=== PATIENT | female | born 1935 | race Caucasian/White ===

== ENCOUNTER → 2017-01-03 | Day surgery (SDC) | payer BC ==
[2016-12-21 09:53] VITALS: Ht 154.9 cm; Wt 58.2 kg
[~2017-01-03] VITALS: Ht 154.9 cm; Wt 58.2 kg
[~2017-01-03] MED LIST: ASCO10003 PO; ASPCH81X PO; ATOR10TA88 PO; BIMA0.01 OPB; BUPIVACAINE 0.25% 2.5MG/ML PF 10 ML VIAL INFIL ONE; CALC500C70 PO; CYCL0.052 OPB; DENO60SO INJ; LIDOCAINE HCL 1% MPF 5 ML VIAL ONE; LISI20TA3 PO; MAGNSUS5 PO; MILK150C PO; MOML PO; MULTTAB58 PO; OMEG12006 PO; OXAP600T PO; PANT40TA PO; TRAM37.52 PO
[2017-01-03 14:08] VITALS: TEMP 36.8
--- NOTE | 2017-01-03 14:44 | History & Physical Bridge - [place] ---
H&P Re-Evaluation Bridge Note: I have examined the patient, reviewed the History & Physical and in the interval since the performance of the History & Physical I have noted the following changes of clinical significance: No changes noted
--- NOTE | 2017-01-03 15:12 | Discharge Instructions ---
Discharge Instructions Date of Service Jan 03, 2017. Visit Reason for Visit: Low Back Pain Discharge Discharge Diagnosis / Problem: low back pain Discharge Goals Goal(s): Decrease discomfort, Improve function Activity Recommendations Activity Limitations: resume your previous activity Anesthesia . Post Anesthesia Instructions: If you have had General Anesthesia or IV Sedation: * Do not drive today. * Resume driving when surgeon permits. * Do not make important decisions or sign legal documents today. * Call surgeon for: 1. Temperature elevations greater than 101 degrees F. 2. Uncontrollable pain. 3. Excessive bleeding. 4. Persistent nausea and vomiting. 5. Medication intolerance (nausea, vomiting or rash). * For nausea and vomiting use only clear liquids such as: tea, soda, bouillon until nausea subsides, then gradually increase diet as tolerated. * If you have any concerns or questions, call your surgeon's office. If physician is unavailable and it is an emergency, call 911 or go to the nearest emergency room. . Diet Recommendations Recommended Home Diet: resume previous diet Procedures Procedures Performed: Bilateral L4-5 Medial Branch Blocks Pending Studies Studies pending at discharge: no Medical Emergencies . Who to Call and When: Medical Emergencies: If at any time you feel your situation is an emergency, please call 911 immediately. . Non-Emergent Contact Non-Emergency issues call your: Specialist . . "Provider Documentation" section prepared by Mj Burton.
[2017-01-03 15:22] VITALS: BP 175/99; PULSE 72; O2SAT 98
--- NOTE | 2017-01-03 16:05 | OPERATIVE REPORT ---
DATE OF OPERATION: 01/03/2017 PREOPERATIVE DIAGNOSES: Bilateral L4-5 facet arthropathy, chronic low back pain. POSTOPERATIVE DIAGNOSES: Same. PROCEDURE: Bilateral L4-5 medial branch blocks. INDICATIONS FOR PROCEDURE: The patient is a 81-year-old white female who presents today for medial branch blocks. It is felt that the cause of her pain and the etiology of her pain is facet arthropathy bilaterally at L4-5. Her history and examination are consistent with this. She presents today for diagnostic block to confirm that this is indeed the pain generator that is limiting her function. PHYSICAL EXAMINATION: GENERAL: Pleasant female seated comfortably. MUSCULOSKELETAL: She has tenderness to palpation bilaterally at the L4-5 areas. This is worse with extension, rotation and no pain with forward flexion. She has negative seated straight leg raises. She has intact motor and sensory examination of her lower extremities. CONSENT: Verbal and written consent was obtained from the patient. Risks and benefits were reviewed. Risks include but are not limited to abscess and allergic reaction. The patient wishes to proceed. DESCRIPTION OF PROCEDURE: The patient was taken back to the special procedures room of [facility]. She was maintained in a prone position. Backside was cleansed with Betadine x3 and a dry sterile dressing was applied. A fluoroscope was used to then identify the left L4 and L5 transverse process junctions. The overlying skin was then anesthetized with 1.25 mL of lidocaine 1% at each site with a 25-gauge 1.5-inch needle. A 25-gauge 3.5-inch spinal needle was then directed at each site contacting the bony target and then anesthetized with an additional 1 mL of bupivacaine 0.25%. The right side was then fluoroscopically identified, the right L4 transverse process junction and the right L5 transverse process junction. Overlying skin again anesthetized with 1.25 mL of lidocaine 1% with a 25-gauge 1.5-inch needle. A 25-gauge 3.5-inch spinal needle was then directed under fluoroscopic guidance contacting bony target at each site. She then underwent injection after negative aspiration of 1 mL of bupivacaine 0.25% at each site. DISPOSITION: 1. The patient is taken out into the discharge recovery area where she will be discharged home once discharge criteria have been met. 2. Follow up in the [facility] office in 2-4 weeks. I attest to the content of the Intraoperative Record and any orders documented therein. Any exceptio ns are noted below.
== END | disposition home or self-care (01) ==
LOC: X.SURG 13:54
PROVIDERS: ATTEND Physical Medicine & Rehabilitation
DX: M47.817 Spondylosis without myelopathy or radiculopathy, lumbosacral region (principal); G89.29 Other chronic pain; Z79.82 Long term (current) use of aspirin

== ENCOUNTER → 2017-01-21 | Outpatient (CLI) | payer BC ==
[~2017-01-21] MED LIST changes: +ATOR10TA82 PO; -ATOR10TA88 PO; -BUPIVACAINE 0.25% 2.5MG/ML PF 10 ML VIAL INFIL ONE; -LIDOCAINE HCL 1% MPF 5 ML VIAL ONE
== END | disposition home or self-care (01) ==
LOC: C.RDSM 10:50
PROVIDERS: ATTEND Physical Medicine & Rehabilitation Sports Medicine
DX: Z96.649 Presence of unspecified artificial hip joint (principal)

== ENCOUNTER → 2017-03-27 | Day surgery (SDC) | payer BC ==
[2017-03-04 14:04] VITALS: Ht 154.9 cm; Wt 58.2 kg
[~2017-03-27] VITALS: Ht 154.9 cm; Wt 58.2 kg
[~2017-03-27] MED LIST changes: -DENO60SO INJ; +IOPAMIDOL INJ 61% 15 ML VIAL ONE; +LIDOCAINE HCL 1% MPF 5 ML VIAL ONE; -MAGNSUS5 PO; +SODIUM CHLORIDE 0.9% INJ 10 ML VIAL ONE
[2017-03-27 14:45] VITALS: TEMP 36.9
--- NOTE | 2017-03-27 14:50 | Discharge Instructions ---
Discharge Instructions Date of Service Mar 27, 2017. Visit Reason for Visit: Lumbar Spinal Stenosis Discharge Discharge Diagnosis / Problem: low back pain Discharge Goals Goal(s): Decrease discomfort, Improve function Medications Stopped Medications Name(s): ASA and Zuri Membreno 03/23/17. Activity Recommendations Activity Limitations: resume your previous activity Anesthesia . Post Anesthesia Instructions: If you have had General Anesthesia or IV Sedation: * Do not drive today. * Resume driving when surgeon permits. * Do not make important decisions or sign legal documents today. * Call surgeon for: 1. Temperature elevations greater than 101 degrees F. 2. Uncontrollable pain. 3. Excessive bleeding. 4. Persistent nausea and vomiting. 5. Medication intolerance (nausea, vomiting or rash). * For nausea and vomiting use only clear liquids such as: tea, soda, bouillon until nausea subsides, then gradually increase diet as tolerated. * If you have any concerns or questions, call your surgeon's office. If physician is unavailable and it is an emergency, call 911 or go to the nearest emergency room. . Diet Recommendations Recommended Home Diet: resume previous diet Procedures Procedures Performed: LUMBAR EPIDURAL STEROID INJECTION, CHANGED TO CAUDAL APPROACH Pending Studies Studies pending at discharge: no Medical Emergencies . Who to Call and When: Medical Emergencies: If at any time you feel your situation is an emergency, please call 911 immediately. . Non-Emergent Contact Non-Emergency issues call your: Specialist . . "Provider Documentation" section prepared by Mj Burton. .
[2017-03-27 14:59] VITALS: BP 175/82; PULSE 83; O2SAT 97
--- NOTE | 2017-03-27 16:48 | OPERATIVE REPORT ---
DATE OF OPERATION: 03/27/2017 PREOPERATIVE DIAGNOSIS: Lumbar spinal stenosis with neurogenic claudication. POSTOPERATIVE DIAGNOSIS: Same. PROCEDURE: Caudal epidural steroid injection under fluoroscopic guidance. INDICATIONS: The patient is a 81-year-old white female that presents today for a lumbar epidural steroid injection. She had previously had done branch blocks before the facet joint was felt to be causing the intense pain in her low back, but these were not helpful. She does note that she gets a heaviness feeling in her legs and it is felt that she has more of a stenotic, as she presents today for an epidural injection to provide her with relief and improve her functional status. PHYSICAL EXAMINATION: GENERAL: Pleasant female seated comfortably. MUSCULOSKELETAL: Lumbar paraspinal muscles were palpated. They were nontender. She had no issues with forward flexion or extension. She had normal lower extremity strength. CONSENT: Verbal and written consent was obtained from the patient. Risks and benefits were reviewed. Risks include but are not limited to epidural abscess, epidural hematoma, allergic reaction, dural puncture. The patient wishes to proceed. DESCRIPTION OF PROCEDURE: The patient was taken back to the special procedures room of the [facility] where she was maintained in a prone position and the backside was cleansed with Betadine. Fluoroscope was used to identify the L4-L5 interlaminar space which was the largest opening out of all the interlaminar spaces in the lower lumbar area, but still rather constricted. Overlying skin was anesthetized with 4 mL of lidocaine 1% with a 25 gauge 1.5-inch needle and a 22 gauge 3.5-inch Tuohy needle was attempted to be advanced. It was unable to be advanced despite what appeared to be open areas in the interlaminar space. Decision was made to enter via a caudal approach and the view was changed to a lateral view and the overlying skin of the sacral hiatus was anesthetized with 2 mL of lidocaine 1% with a 25 gauge 1.5-inch needle was then directed easily into the sacral hiatus and through the sacral canal which after negative aspiration was injected with 40 mg of Depo-Medrol and 4 mL of preservative-free sodium chloride. Injection was well tolerated. DISPOSITION: 1. She is taken out into the discharge recovery area where she will be discharged to home once discharge criteria have been met. 2. Follow up in the [facility] office in 4 weeks' time. I attest to the content of the Intraoperative Record and any orders documented therein. Any exception s are noted below.
== END | disposition home or self-care (01) ==
LOC: X.SURG 13:29
PROVIDERS: ATTEND Physical Medicine & Rehabilitation
DX: M48.07 Spinal stenosis, lumbosacral region (principal); I73.9 Peripheral vascular disease, unspecified

== ENCOUNTER → 2017-07-22 | Outpatient (CLI) | payer BC ==
[~2017-07-22] MED LIST changes: -ATOR10TA82 PO; +ATOR10TA88 PO; -IOPAMIDOL INJ 61% 15 ML VIAL ONE; -LIDOCAINE HCL 1% MPF 5 ML VIAL ONE; -SODIUM CHLORIDE 0.9% INJ 10 ML VIAL ONE
== END | disposition home or self-care (01) ==
LOC: C.RDSM 13:32
PROVIDERS: ATTEND Physical Medicine & Rehabilitation Sports Medicine
DX: Z09 Encounter for follow-up examination after completed treatment for conditions other than malignant neoplasm (principal)

== ENCOUNTER 2022-12-27 08:04 | Observation (INO) ==
--- NOTE | 2022-12-20 15:15 | Anesthesiology Consultation ---
Date of Service December 20, 2022 Assessment & Plan (1) Encounter for pre-operative examination: Chart Review Chart Review: Acceptable Risk for Surgery and Patient NOT seen in Pre Admission Testing -COVID screening: Per PAT nursing assessment on 12/20/22. No known COVID-19 positive contacts or current COVID-19 related symptoms. Travel screen negative. Patient vaccinated for Covid. At surgeon discretion if preop Covid testing being done. History Surgery Operation Date: 12/27/22 07:15 Proposed Procedures p Open Incisional Hernia Repair with Mesh - Kendrick Santamaria DO Height/Weight Height: 5 ft Weight: 54.431 kg Allergies Allergy/AdvReac Type Severity Reaction Status Date / Time No Known Allergies Allergy Unverified 12/20/22 14:12 Medications Home Medications Medication Instructions Recorded Confirmed Last Taken amlodipine 10 mg tablet 10 mg PO QAM 11/21/22 12/20/22 Unknown aspirin 81 mg tablet,delayed 81 mg PO QPM 11/21/22 12/20/22 Unknown release atorvastatin 40 mg tablet 20 mg PO QPM 11/21/22 12/20/22 Unknown clonazepam 0.5 mg tablet 0.25 mg PO DAILY PRN Anxiety 11/21/22 12/20/22 Unknown oxaprozin 600 mg tablet 600 mg PO QAM 11/21/22 12/20/22 Unknown pantoprazole 40 mg tablet,delayed 40 mg PO QAM 11/21/22 12/20/22 Unknown release tramadol 50 mg tablet 50 mg PO QID PRN Pain 11/21/22 12/20/22 Unknown triamcinolone acetonide 0.1 % 1 applic topical DAILY 11/21/22 12/20/22 Unknown topical cream alendronate 70 mg tablet 70 mg PO .weekly 11/26/22 12/20/22 Unknown ascorbic acid (vitamin C) 250 mg 250 mg PO QAM 12/20/22 12/20/22 Unknown tablet (Vitamin C) bimatoprost 0.01 % eye drops 1 drp ophthalmic (eye) PM 12/20/22 12/20/22 Unknown (Lumigan) calcium carbonate 600 mg-vitamin 1 tab PO QAM 12/20/22 12/20/22 Unknown D3 5 mcg (200 unit) tablet cyclosporine 0.05 % eye drops in a 1 drp ophthalmic (eye) Q12H 12/20/22 12/20/22 Unknown dropperette (Restasis) docusate sodium 50 mg capsule 50 mg PO HS 12/20/22 12/20/22 Unknown (Stool Softener) lisinopril 30 mg tablet 30 mg PO QPM 12/20/22 12/20/22 Unknown magnesium hydroxide 400 mg/5 mL 400 mg PO HS PRN constipation 12/20/22 12/20/22 Unknown oral suspension (Milk of Magnesia) multivitamin 1 tab PO QAM 12/20/22 12/20/22 Unknown omega-3 fatty acids 1,000 mg PO QAM 12/20/22 12/20/22 Unknown Past Medical History Medical History Anxiety and depression GERD (gastroesophageal reflux disease) HTN (hypertension) Hyperlipidemia Past Family History Family History Mother Breast cancer Father Heart disease Grandmother Stroke Aunt Stroke Other No family history of adverse response to anesthesia Past Surgical History Surgical History H/O laparoscopy Dr. Russell 2021 blocked bowel History of hip surgery orif Hx of cataract extraction Hx of colonoscopy Hx of hand surgery Hx of LASIK Social History Smoking Status: Never smoker Do You Dip or Chew Tobacco: No Hx Alcohol Use: No Hx Substance Use: No substance use type: does not use Lab Results Anesthesia Preop Results Results Anesthesia Widget: WBC 6.67 K/ul (4.8-10.8) 11/26/22 Hgb 11.2 g/dl (12.0-16.0) L 11/26/22 Hct 35.5 % (37.0-47.0) L 11/26/22 Plt 372 K/uL (130-400) 11/26/22 Na 138 mmol/L (136-145) 11/26/22 K 4.7 mmol/L (3.5-5.1) 11/26/22 Cl 101 mmol/L (98-107) 11/26/22 CO2 33 mmol/L (21-32) H 11/26/22 BUN 27 mg/dl (6-23) H 11/26/22 Creat 1.23 mg/dl (0.6-1.2) H 11/26/22 Glucose Level 101 mg/dl (70-99(Fasting)) H 11/26/22 Testing Electrocardiogram Date: 11/26/22 Findings: + NSR @ (65bpm ) Minimal voltage criteria for LVH, may be normal variant Nonspecific ST and T wave abnormality When compared to EKG from May 27, 2015- nonspecific T wave abnormality no longer evident in inferior leads
[~2022-12-27 08:04] MED LIST changes: -ASCO10003 PO; -ASPCH81X PO; -ATOR10TA88 PO; -BIMA0.01 OPB; -CALC500C70 PO; -CYCL0.052 OPB; -LISI20TA3 PO; +LR 15ML/HR IV SCH; -MILK150C PO; -MOML PO; -MULTTAB58 PO; -OMEG12006 PO; -OXAP600T PO; -PANT40TA PO; -TRAM37.52 PO; +ceFAZolin 2000MG 2,000 MG/15 ML SYR IV SCH
[2022-12-27] MEDS ORDERED: ONDANSETRON INJ 2 MG/ML 2 ML VIAL ONE (09:04)
[2022-12-27] MEDS ORDERED: PROPOFOL IV EMULSION 10 MG/ML 20 ML VIAL IV ONE (09:04)
[2022-12-27] MEDS ORDERED: DEXAMETHASONE SOD INJ 4 MG/ML VIAL ONE (09:04)
[2022-12-27] MEDS ORDERED: fentaNYL citrate PF 100 MCG/2 ML VIAL ONE (09:04)
[2022-12-27] MEDS ORDERED: LIDOCAINE 2% MPF LOCAL 5 ML VIAL INFIL ONE ×2 (09:05→10:03)
[2022-12-27] MEDS ORDERED: ROCURONIUM BROMIDE 10 MG/ML 5 ML VIAL IV ONE ×5 (09:05)
[2022-12-27] MEDS ORDERED: HYDROmorphone INJ 1 MG/ML SYRINGE IV PRN (09:35)
[2022-12-27] MEDS ORDERED: ePHEDrine sulfate 50 MG/ML AMP IV PRN (09:35)
[2022-12-27] MEDS ORDERED: ATROPINE SULFATE 0.1 MG/ML 10ML SYR IV PRN (09:35)
[2022-12-27] MEDS ORDERED: ONDANSETRON INJ 2 MG/ML 2 ML VIAL IV PRN ×2 (09:35→13:23)
--- NOTE | 2022-12-27 09:59 | History & Physical Report ---
Date of Service December 27, 2022 Assessment & Plan (1) Incisional hernia, incarcerated: Plan: We discussed her options as well as risks. I have answered all of her questions. We will proceed today with open incisional hernia repair with mesh. History of Present Illness Primary Care Provider: Melissashea Medina is here for repair of an incisional hernia. She had a partial small bowel resection for small bowel obstruction little over a year ago at [facility]. Is been no changes to his health history since I seen her last in the office. Allergies Allergy/AdvReac Type Severity Reaction Status Date / Time No Known Allergies Allergy Verified 12/27/22 08:37 Home Medications Medication Instructions Recorded Confirmed Type amlodipine 10 mg tablet 10 mg PO QAM 11/21/22 12/27/22 History aspirin 81 mg tablet,delayed 81 mg PO QPM 11/21/22 12/27/22 History release atorvastatin 40 mg tablet 20 mg PO QPM 11/21/22 12/27/22 History clonazepam 0.5 mg tablet 0.25 mg PO DAILY PRN Anxiety 11/21/22 12/27/22 History oxaprozin 600 mg tablet 600 mg PO QAM 11/21/22 12/27/22 History pantoprazole 40 mg tablet,delayed 40 mg PO QAM 11/21/22 12/27/22 History release tramadol 50 mg tablet 50 mg PO QID PRN Pain 11/21/22 12/27/22 History alendronate 70 mg tablet 70 mg PO .weekly 11/26/22 12/27/22 History ascorbic acid (vitamin C) 250 mg 250 mg PO QAM 12/20/22 12/27/22 History tablet (Vitamin C) bimatoprost 0.01 % eye drops 1 drp ophthalmic (eye) PM 12/20/22 12/27/22 History (Lumigan) calcium carbonate 600 mg-vitamin 1 tab PO QAM 12/20/22 12/27/22 History D3 5 mcg (200 unit) tablet cyclosporine 0.05 % eye drops in a 1 drp ophthalmic (eye) Q12H 12/20/22 12/27/22 History dropperette (Restasis) docusate sodium 50 mg capsule 50 mg PO HS 12/20/22 12/27/22 History (Stool Softener) lisinopril 30 mg tablet 30 mg PO QPM 12/20/22 12/27/22 History magnesium hydroxide 400 mg/5 mL 400 mg PO HS PRN constipation 12/20/22 12/27/22 History oral suspension (Milk of Magnesia) multivitamin 1 tab PO QAM 12/20/22 12/27/22 History omega-3 fatty acids 1,000 mg PO QAM 12/20/22 12/27/22 History Past Med/Surg History Medical History Anxiety and depression GERD (gastroesophageal reflux disease) HTN (hypertension) Hyperlipidemia Surgical History H/O laparoscopy Dr. Russell 2021 blocked bowel History of hip surgery orif Hx of cataract extraction Hx of colonoscopy Hx of hand surgery Hx of LASIK Family History Mother Breast cancer Father Heart disease Grandmother Stroke Aunt Stroke Other No family history of adverse response to anesthesia Social History Smoking Status: Never smoker Second Hand Exposure: No; Do You Dip or Chew Tobacco: No; Tobacco Cessation Education Requested by Patient: No Hx Alcohol Use: No Hx Substance Use: No Preferred Language: Yi Communication Ability: Effective Temple Marker Required: No Beliefs That Will Affect Care: None marital status: / Current Living Situation: Alone How many Children do You have: 3 Other Information That Helps Us Care for You: No Feels Safe at Home: Yes Safety Concerns: Feels Safe At This Time during the past year weight has: remained stable Assistive Devices: None Review of Systems All systems reviewed & are unremarkable except as noted in HPI & below Physical Exam Constitutional: WD/WN, vitals as above no acute distress and not ill appearing Eyes: PERRL, conjunctivae normal, anicteric sclerae EOM intact bilaterally ENMT: external ear and nose normal, oropharynx normal Ears: no hearing impairment Neck: trachea midline, no thyromegaly Respiratory: normal respiratory effort; no respiratory distress and does not use accessory muscles Cardiovascular: Rate/Rhythm: regular rate and regular rhythm Gastrointestinal (Abdomen): Soft. Nontender. Moderate sized incisional hernia. Unchanged from previous office visit Skin: no rashes, warm and dry Psychiatric: Orientation: alert, oriented x 3 and cooperative Results & Data ([facility]) Vital Signs (Past 12 Hours) Vital Signs Temp Pulse Resp BP Pulse Ox O2 Del Method 12/27/22 08:35 36.7 C 77 20 169/87 H 99 Room Air
[2022-12-27] MEDS ORDERED: BUPIVACAINE/EPINEPHRINE 0.5% MPF 1:200,000 30 ML VIAL ONE (10:03)
[2022-12-27] MEDS ORDERED: ROPIVACAINE 0.5% 5 MG/ML 30 ML VIAL ONE (10:04)
[2022-12-27] MEDS ORDERED: METOPROLOL TARTRATE 1 MG/ML VIAL IV ONE (10:51)
[2022-12-27] MEDS ORDERED: GLYCOPYRROLATE 0.2 MG/ML VIAL ONE ×2 (10:56→12:58)
[2022-12-27] MEDS ORDERED: NEOSTIGMINE METHYLSULFATE 1 MG/ML 10ML VIAL ONE (10:56)
[2022-12-27] MEDS ORDERED: KETOROLAC 30 MG/ML VIAL ONE (11:51)
--- NOTE | 2022-12-27 12:04 | Operative Report ---
PG Post Operative Report Pre & Post Diagnosis Operation Date: 12/27/22 09:55 Pre-Op Diagnosis: Incisional Hernia Post-Op Diagnosis: Incisional Hernia x 2. total defect 17 cm I identified the patient and participated in the time-out.: Yes Procedure Operation Date: 12/27/22 09:55 Actual Procedures p Open Incisional Hernia Repair with Mesh(Not Applicable) - Kendrick Santamaria DO Surgeon Kendrick Santamaria DO Journalism Internship Dr. Igor MD Estimated Blood Loss 25 Findings Consistent with Post-Op Diagnosis Specimens portion of hernia sac Description of Procedure After informed consent was obtained the patient was taken to the operating room and placed in supine position. After successful intubation the abdomen was ster ilely prepped and draped in usual fashion. I began with an incision through her prior incision from above the umbilicus down around to the suprapubic region. We carried this down through the soft tissue using cautery. Peritoneum was opened using Metzenbaum scissors. We extended this to both poles of the incision. I would end up extending the incision superiorly due to the large size of the defect. There were actually 2 defects with a fascial bridge. After we divided the fascial bridge the entire length of the hernia was approximately 17 cm. We grasped the edges with Santos clamps and then skeletonized the fascia in 360 degrees using electrocautery. We excised the hernia sac in its entirety. There was a nodular abnormality on 1 portion of the hernia sac and we sent this to pathology. After we skeletonized the entire defect I closed it primarily using #1 Ethibond in simple interrupted fashion. Once this was closed I used a ProGrip mesh as an onlay. It was secured in 360 degrees using 0 Vicryl. The mesh laid nice and flat and tension-free. We did irrigate the wound before and after placing the mesh. There was adequate hemostasis. A 10 flat Nik-Ahumada drain was advanced through a separate stab incision and placed into the cavity. I then closed the incision using 0 Vicryl for deep layers 2-0 Vicryl for mid layers and skin yomi for the skin. Silver dressing gauze and tape as well as an abdominal binder were used as a dressing. The drain was sewn in using 2-0 nylon. The patient was awakened ,extubated and transferred to recovery in stable condition. Dr. Dimple Bal assisted in all aspects of the procedure including providing exposure assisting with mesh placement etc. I attest to the content of the Intraoperative Record and any orders documented therein. Any exceptions are noted below.
[2022-12-27] MEDS ORDERED: GLYCOPYRROLATE 0.2 MG/ML VIAL IV STA (13:00)
[2022-12-27] MEDS ORDERED: LACTATED RINGER'S 1,000 ML IV SCH (13:23)
[2022-12-27] MEDS ORDERED: MoRPHine SULFATE 4 MG/ML 1 ML CARP\\VIAL IV PRN (13:23)
[2022-12-27] MEDS ORDERED: oxyCODONE HCL IR 5 MG TAB (IMMEDIATE RELEASE) PO PRN ×2 (13:23)
[2022-12-27] MEDS ORDERED: clonazePAM 0.25 MG TAB PO PRN (13:23)
[2022-12-27] MEDS ORDERED: MoRPHine SULFATE 2 MG/ML CARP IV PRN (13:23)
[2022-12-27] MEDS: LACTATED RINGER'S 1,000 ML IV SCH (13:51)
[2022-12-27] MEDS: ACETAMINOPHEN 1,000 MG/100 ML VIAL IV SCH ×2 (14:28→20:12)
--- NOTE | 2022-12-27 14:51 | Anesthesiology Progress Note ---
Date of Service December 27, 2022 Anesthesia Post Procedure Vital Signs Vital Signs: Temp Pulse Pulse Resp BP BP Pulse Ox 12/27/22 14:15 36.5 C 53 L 16 116/70 97 12/27/22 13:45 36.3 C L 63 16 141/76 H 99 12/27/22 13:15 36.6 C 60 15 124/66 97 12/27/22 13:05 64 14 118/64 97 12/27/22 12:55 44 L 13 98/51 L 97 12/27/22 12:45 36.5 C 50 L 14 104/53 L 96 12/27/22 12:35 56 L 17 156/73 H 97 12/27/22 12:25 62 14 167/85 H 97 12/27/22 12:15 67 20 181/93 H 98 12/27/22 12:05 36.1 C L 73 16 186/96 H 93 12/27/22 08:35 36.7 C 77 20 169/87 H 99 O2 Del Method O2 Flow Rate 12/27/22 14:15 Nasal Cannula 2 12/27/22 13:45 Nasal Cannula 2 12/27/22 13:15 Nasal Cannula 2 12/27/22 13:05 Nasal Cannula 2 12/27/22 12:55 Nasal Cannula 2 12/27/22 12:45 Nasal Cannula 2 12/27/22 12:35 Room Air 12/27/22 12:25 Oxymask 7 12/27/22 12:15 Oxymask 11 12/27/22 12:05 Oxymask 11 12/27/22 08:35 Room Air Pain Intensity Abdomen: Pain Intensity: 3 Transfer of Care Handoff Completed per policy Notes Mental Status: alert / awake / arousable and participated in evaluation Nausea / Vomiting: adequately controlled Pain: adequately controlled Airway Patency, RR, SpO2: stable & adequate BP & HR: stable & adequate Hydration State: stable & adequate Anesthetic Complications: no major complications apparent and Pt Satisfied with anesthetic care
[2022-12-27] MEDS: [UNRECOGNIZED DRUG - OTHER] SCH (17:33)
[2022-12-27] MEDS: ceFAZolin 2000MG 2,000 MG/15 ML SYR IV SCH (18:15)
[2022-12-27] MEDS ORDERED: ATORVASTATIN 20 MG TAB PO SCH (21:00)
[2022-12-27] MEDS ORDERED: BIMATOPROST 0.01% OP SOLN 2.5 ML BTL OP SCH (21:00)
[2022-12-28] MEDS: [UNRECOGNIZED DRUG - OTHER] SCH ×2 (00:35→08:27)
[2022-12-28] MEDS: LACTATED RINGER'S 1,000 ML IV SCH (02:41)
[2022-12-28] MEDS: ceFAZolin 2000MG 2,000 MG/15 ML SYR IV SCH ×2 (02:41→10:55)
[2022-12-28] MEDS: ACETAMINOPHEN 1,000 MG/100 ML VIAL IV SCH (05:53)
[2022-12-28 08:37] LABS: Basophils # (auto) 0.03 K/uL (0-0.2); Basophils % (auto) 0.3 %; Hemoglobin 10.2 g/dl (12.0-16.0); Immature Granulocytes # (auto) 0.04 K/uL (0.01-0.20); Immature Granulocytes % (auto) 0.4 %; Lymphocytes # (auto) 1.86 K/uL (1.2-3.4); Mean Corpuscular Hemoglobin 31.1 pg (25.0-34.0); Mean Corpuscular Hgb Conc 32.9 g/dL (32.0-36.0); Mean Corpuscular Volume 94.5 fL (80.0-100.0); Mean Platelet Volume 10.1 fL (9.4-12.4); Monocytes # (auto) 1.25 K/uL (0.11-0.59); Monocytes % (auto) 11.5 %; Neutrophils # (auto) 7.73 K/uL (1.40-6.50); Neutrophils % (auto) 70.8 %; Platelet Count 296 K/uL (130-400); RDW Coefficient of Variation 15.5 % (11.5-14.5); RDW Standard Deviation 53.3 fL (36.4-46.3); Red Blood Count 3.28 M/uL (4.20-5.40); White Blood Count 10.91 K/ul (4.8-10.8)
[2022-12-28] MEDS ORDERED: PANTOprazole 40 MG TAB PO SCH (09:00)
[2022-12-28] MEDS ORDERED: amLODIPine BESYLATE 5 MG TAB PO SCH (09:00)
[2022-12-28 09:02] LABS: Calcium 8.6 mg/dl (8.5-10.1); Potassium 3.8 mmol/L (3.5-5.1)
[2022-12-28 09:07] LABS: BUN Creatinine Ratio 20.2 (10-20); Creatinine Clr Calc Pharmacy 29.8 ml/min; Est GFR (African American) 60.2 ml/min
--- NOTE | 2022-12-28 11:00 | Surgery Progress Note ---
Date of Service December 28, 2022 Assessment & Plan (1) History of incisional hernia repair: Plan: Doing well postoperative day #1. Okay for discharge. Instructions given Admission and Anticipated Discharge Date Admission Date: December 27, 2022 Subjective Patient seen. Feeling very well and would like to go home. No complaints Physical Exam Physical Exam: Alert and oriented no acute distress Abdominal dressings clean and dry. Minimal/expected postoperative tenderness. Results & Data ([facility]) Vital Signs (Past 12 Hours) Vital Signs Temp Pulse Resp BP BP Pulse Ox O2 Del Method 12/28/22 07:14 37.0 C 77 16 163/83 H 94 Room Air 12/28/22 03:41 37.0 C 70 16 157/76 H 92 Room Air PG Care Time/CCT Total # of Minutes Spent Total Time Spent with Patient: Total time spent is greater than 50% in coordination of care (as documented) at patient's floor/unit and/or counseling patient: Coding Level of Care Code 60280 Post Operative Follow-Up Diagnoses History of incisional hernia repair Z98.890; Z87.19
--- NOTE | 2023-01-04 15:32 | Discharge Summary ---
Date of Service December 28, 2022 Admission HPI Per Admitting Provider Carol is here for repair of an incisional hernia. She had a partial small bowel resection for small bowel obstruction little over a year ago at [place]. Is been no changes to his health history since I seen her last in the office. Principal Diagnosis incisional hernia repair Discharge Exam awake/alert, no distress Gastrointestinal (Abdomen) Inspection/Auscultation: + abdominal surgical incision (c/d/i); abdomen not distended Percussion/Palpation: + abdomen tender (mild expected jeremiah incisional discomfort to palpation) and abdomen soft Discharge Data Allergies Allergy/AdvReac Type Severity Reaction Status Date / Time No Known Allergies Allergy Verified 12/27/22 08:37 Procedures Performed Operation Date: 12/27/22 09:55 Actual Procedures p Open Incisional Hernia Repair with Mesh(Not Applicable) - Kendrick Santamaria, Ordered Studies 12/27/22 US - OR guided needle placemen Routine Hospital Course (1) History of incisional hernia repair: This is an 87yF who presented to the [facility] on 12/27/22 for elective incisional hernia repair. This was performed as an open procedure with mesh with Dr. Santamaria. The patient tolerated the procedure well, see op note for full details. The patient recovered in the PACU and was transferred to the med/surg unit in stable condition for overnight observation. She was given a diet as tolerated. She was able to void and ambulate independently. Pain remained well controlled. Abdominal binder in place. On 12/28/22 the patient was deemed stable for discharge to home with instructions to follow up in clinic within 2 weeks time. Total Time Total Time Spent Total Time Spent (In Minutes): 10 Discharge Plan Discharge Items Patient Disposition: Home - Self-Care Reason For Visit: Incisional Hernia Discharge Diagnosis: incisional hernia repair Activity: Per Instructions section Lifting: No more than 10 pounds Bathing Comment: may shower starting 12/28/22; no soaking in tubs/pools Exercise/Sports: Wait until after follow-up appointment Driving/Machine Use: no driving while taking narcotics for pain Non-emergency contact: Surgeon Call non-emergency contact if: you have any medication questions, your symptoms worsen, your pain is not controlled, your pain is concerning for you, you have a fever, your temperature is above 101.5, your wound has increased redness, your wound has increased drainage and your wound pain has increased Follow-up/Referrals: Kendrick Santamaria DO [Surgeon] - 01/07/23 10:00 am ( follow up 2 weeks ) Melissa Fountain PA-C [Primary Care Provider] - Diet: Regular Addtl Attending Provider Instructions: Please care for your JESS drain as you have been instructed prior to discharge from the hospital. Empty drain 2-3x/daily and record output. Keep to bulb suction Continue to wear your abdominal binder as often as you are able to tolerate Do not take the medication called Tramadol while taking the narcotic Percocet for pain as they are both considered narcotics and should not be taken together Pending Studies at Discharge: No Stand-Alone Forms: My [facility] Medications and DC Order Prescriptions: New oxycodone-acetaminophen [Percocet] 5-325 mg tablet 1 - 2 tab PO .q4-6h PRN (Reason: pain, for initial therapy, max 6 tabs per day) Qty: 15 0RF Continued pantoprazole 40 mg tablet,delayed release (DR/EC) 40 mg PO QAM atorvastatin 40 mg tablet 20 mg PO QPM amlodipine 10 mg tablet 10 mg PO QAM oxaprozin 600 mg tablet 600 mg PO QAM clonazepam 0.5 mg tablet 0.25 mg PO DAILY PRN (Reason: Anxiety) aspirin 81 mg tablet,delayed release (DR/EC) 81 mg PO QPM Rx Instructions: currently on hold alendronate 70 mg tablet 70 mg PO .weekly Rx Instructions: saturdays multivitamin Tablet 1 tab PO QAM Stool Softener 50 mg Capsule 50 mg PO HS calcium carbonate-vitamin D3 600 mg-5 mcg (200 unit) Tablet 1 tab PO QAM magnesium hydroxide [Milk of Magnesia] 400 mg/5 mL Suspension 400 mg PO HS PRN (Reason: constipation ) ascorbic acid (vitamin C) [Vitamin C] 250 mg Tablet 250 mg PO QAM lisinopril 30 mg Tablet 30 mg PO QPM cyclosporine [Restasis] 0.05 % Dropperette 1 drp OPHTHALMIC (EYE) Q12H omega-3 fatty acids Capsule 1,000 mg PO QAM Lumigan 0.01 % Drops 1 drp OPHTHALMIC (EYE) PM Discontinued tramadol 50 mg tablet 50 mg PO QID PRN (Reason: Pain) Discharge Orders: Discharge Order (Routine); Ordered 12/28/22 Ordered By: Hallie Arango/Other Patient Handouts: After Hernia Surgery, Post Op Drain Emptying Steps Admission Data Admit Date/Time: 12/27/22 12:07 Attending Provider: Kendrick Santamaria Admit Provider: Kendrick Santamaria Primary Care Provider: Melissa Fountain Other Interventions: Discharge Summary Assessment (RN) Last Done: 12/28/22 11:31 Coding Level of Care Code 96949 IN/OBS DISCH 30 MIN/LESS Diagnoses History of incisional hernia repair Z98.890; Z87.19
== END 2022-12-28 12:13 | disposition home or self-care (01) ==
LOC: ASU 08:04 → 3N 08:04
DX: Z79.82 Long term (current) use of aspirin; Z79.899 Other long term (current) drug therapy; K43.0 Incisional hernia with obstruction, without gangrene